=== PATIENT | male | born 2005 | race Two or more races ===

== ENCOUNTER 2023-02-06 08:20 | Inpatient (IN) | payer OTHER ==
[~2023-02-06] VITALS: Ht 172.7 cm; Wt 68.2 kg
[2023-02-06 11:45] LABS: HEMATOCRIT 48.1 % (39.0-48.0); HEMOGLOBIN 16.9 g/dL (13-16.00); MEAN CELL VOLUME 87.8 fL (80.0-100.00); MEAN CORPUSCULAR HEMOGLOBIN 30.9 pg (27.00-32.0); MEAN CORPUSCULAR HGB CONC 35.2 g/dl (32.0-36.0); PLATELET COUNT 206 K/uL (150-450); RED BLOOD COUNT 5.48 M/uL (4.00-6.00); RED CELL DISTRIBUTION WIDTH 14.1 % (11.5-14.5)
[2023-02-06 16:35] LABS: URINE APPEARANCE Clear; URINE BILIRRUBIN Small (NEGATIVE); URINE BLOOD Negative; URINE COLOR Dark Yellow; URINE GLUCOSE Negative (NEGATIVE); URINE LEUKOCYTE Negative; URINE NITRATE Negative; URINE PROTEIN Trace (NEGATIVE)
[2023-02-06 16:36] LABS: URINE BACTERIA 12.5 uL (0.0-1933); URINE EPITHELIAL CELLS 3.5 uL (0.0-38.8); URINE WBC 2.7 uL (0.0-23.2)
[2023-02-06 16:38] LABS: URINE RBC 1.1 uL (0.0-20.8)
[2023-02-06 16:45] LABS: ALBUMIN 3.8 gm/dL (3.4-5.0); BILIRUBIN TOTAL 0.93 mg/dL (0.3-1.2); CREATININE SERUM 1.15 mg/dL (0.70-1.30); GFR 81.92; GLOBULINA 3.6 G/DL (2.4-3.5); POTASSIUM 4.39 mEq/L (3.5-5.1); TOTAL PROTEIN 7.4 gm/dL (6.4-8.2)
[2023-02-08 06:10] LABS: HEMATOCRIT 42.8 % (39.0-48.0); HEMOGLOBIN 15.3 g/dL (13-16.00); MEAN CELL VOLUME 89.4 fL (80.0-100.00); MEAN CORPUSCULAR HEMOGLOBIN 31.9 pg (27.00-32.0); MEAN CORPUSCULAR HGB CONC 35.7 g/dl (32.0-36.0); PLATELET COUNT 215 K/uL (150-450); RED BLOOD COUNT 4.79 M/uL (4.00-6.00); RED CELL DISTRIBUTION WIDTH 13.9 % (11.5-14.5)
[2023-02-08 06:43] LABS: ALBUMIN 3.5 gm/dL (3.4-5.0); BILIRUBIN TOTAL 0.53 mg/dL (0.3-1.2); CALCIUM 8.9 mg/dL (8.5-10.1); CREATININE SERUM 0.85 mg/dL (0.70-1.30); GFR 116.12; GLOBULINA 3.8 G/DL (2.4-3.5); POTASSIUM 4.71 mEq/L (3.5-5.1); TOTAL PROTEIN 7.3 gm/dL (6.4-8.2)
[2023-02-08 06:47] LABS: C-REACTIVE PROTEIN 0.33 MG/DL (0.00-0.29)
[2023-02-10 07:49] LABS: ALKALINE PHOSPHATASE 172 U/L (50-136); ALT/SGPT 723 U/L (12-78); AST/SGOT 194 U/L (15-37); LDH 223 U/L (87-241)
[2023-02-11 07:50] LABS: ALT/SGPT 499 U/L (12-78); AST/SGOT 75 U/L (15-37)
[2023-02-11 08:00] LABS: INR 1.14; PARTIAL THROMBOPLASTIN TIME 29.6 SECONDS (22.0-34.0); PROTHROMBIN TIME 11.9 SECONDS (9.0-11.5)
== END 2023-02-11 12:13 | disposition home or self-care (01) | DRG 195 ==
LOC: ER 08:21 → EMR PED 08:21 → PED 15:22 → SEC-K 15:22 → SURH 16:11 → PED 02-07 08:34
PROVIDERS: Emergency Medicine Pediatric Emergency Medicine; Pediatrics; ADMIT Emergency Medicine; ATTEND Emergency Medicine
PROC: 3E0F7GC Introduction of Other Therapeutic Substance into Respiratory Tract, Via Natural or Artificial Opening (ICD-10-PCS; principal; 2023-02-06)
DX: J18.9 Pneumonia, unspecified organism (principal); J01.00 Acute maxillary sinusitis, unspecified